=== PATIENT | female | born 1955 | race African-American/Black ===

== ENCOUNTER 2021-05-03 16:24 | Emergency (ER) | payer OTHER ==
[~2021-05-03] VITALS: Ht 162.6 cm; Wt 115.0 kg
[2021-05-03] MEDS ORDERED: ALEN70TA80 PO (16:41)
[2021-05-03] MEDS ORDERED: HYDR25TA2 PO (16:41)
[2021-05-03] MEDS ORDERED: METO25 PO (16:41)
[2021-05-03] MEDS ORDERED: OMEP20 PO (16:42)
[2021-05-03] MEDS ORDERED: ONDANSETRON HCL 4 MG/2 ML VIAL IVP ONE (19:45)
[2021-05-03] MEDS ORDERED: SODIUM CHLORIDE 0.9% 1,000 ML IV ONE (19:45)
[2021-05-03] MEDS ORDERED: MORPHINE SULFATE 2 MG/ML SYRINGE IVP ONE (19:45)
[2021-05-03 20:24] LABS: BASOPHILS % (AUTO) 0.6 % (0.0-2.0); EOSINOPHILS % (AUTO) 0.3 % (1.0-6.0); HEMATOCRIT 38.9 % (36-46); HEMOGLOBIN 12.4 g/dL (12.0-16.0); LYMPHOCYTES # (AUTO) 1.2 K/uL (1.0-4.8); LYMPHOCYTES % (AUTO) 11.5 % (22.0-44.0); MEAN CORPUSCULAR HEMOGLOBIN 28.1 pg (26.0-34.0); MEAN CORPUSCULAR HGB CONC 31.9 G/dL (31.0-37.0); MEAN CORPUSCULAR VOLUME 88 fL (80-100); MONOCYTES % (AUTO) 9.3 % (2.0-9.0); NEUTROPHILS # (AUTO) 8.3 K/uL (1.8-7.7); NEUTROPHILS % (AUTO) 78.3 % (40.0-70.0); PLATELET COUNT (AUTO) 227 K/uL (150-450); RED BLOOD CELL COUNT(AUTO) 4.42 MIL/uL (4.00-5.20); RED CELL DISTRIBUTION WIDTH 14.2 % (11.5-14.5)
[2021-05-03 20:39] LABS: CALCIUM, TOTAL 9.1 mg/dL (8.8-10.5); CREATININE 1.11 mg/dL (0.60-1.30); POTASSIUM 3.4 mmol/L (3.5-5.1)
[2021-05-03 20:45] LABS: ALBUMIN 3.3 g/dL (3.4-5.0); BILIRUBIN,TOTAL 0.3 mg/dL (0.1-1.0); TOTAL PROTEIN, SERUM 7.5 g/dL (6.4-8.2)
[2021-05-03 22:30] VITALS: BP 133/81
== END 2021-05-03 22:56 | disposition home or self-care (01) ==
LOC: EMS 16:26
DX: R10.32 Left lower quadrant pain (principal); R11.2 Nausea with vomiting, unspecified; I10 Essential (primary) hypertension; Z90.710 Acquired absence of both cervix and uterus; Z88.6 Allergy status to analgesic agent; Z88.5 Allergy status to narcotic agent; Z88.8 Allergy status to other drugs, medicaments and biological substances
CPT/HCPCS: 36415; 71045; 74176; 80053; 83690; 84484; 85025; 93005; 96361; 96374; 96375; 99285; J2270; J2405; J7030